=== PATIENT | female | born 2000 | race Caucasian/White ===

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

== ENCOUNTER 2020-09-10 15:31 | Emergency (ER) | payer OTHER, SELFPAY ==
[2020-09-11 11:47] LABS: SARS-CoV-2 MS2 Positive; SARS-CoV-2 N Gene Positive; SARS-CoV-2 S Gene Positive; SARS-CoV-2 by NAA DETECTED (NotDetected); SARS-CoV-2 orf1ab Positive
== END 2020-09-10 16:21 | disposition home or self-care (01) ==
LOC: ERS 15:31
DX: U07.1 COVID-19 (principal); J45.909 Unspecified asthma, uncomplicated; F90.9 Attention-deficit hyperactivity disorder, unspecified type
CPT/HCPCS: 87635; 99283; U0003

== ENCOUNTER 2020-09-21 14:37 | Emergency (ER) | payer OTHER, SELFPAY ==
[2020-09-22 11:53] LABS: SARS-CoV-2 MS2 Positive; SARS-CoV-2 N Gene Positive; SARS-CoV-2 S Gene Positive; SARS-CoV-2 by NAA DETECTED (NotDetected); SARS-CoV-2 orf1ab Positive
== END 2020-09-21 15:38 | disposition home or self-care (01) ==
LOC: ERS 14:37
DX: U07.1 COVID-19 (principal)
CPT/HCPCS: 87635; 99283; U0003

== ENCOUNTER 2022-07-19 15:18 | Emergency (ER) | payer BC | END 2022-07-19 16:26 | disposition home or self-care (01) | LOC: ERS 15:18 | DX: M25.571 Pain in right ankle and joints of right foot (principal); F17.290 Nicotine dependence, other tobacco product, uncomplicated; W20.8XXA Other cause of strike by thrown, projected or falling object, initial encounter ==

== ENCOUNTER 2022-09-16 17:04 | Emergency (ER) | payer BC ==
[2022-09-16] MEDS ORDERED: Ondansetron ODT 4 MG TAB ONE (19:05)
[2022-09-16] MEDS ORDERED: Acetaminophen 325 MG TAB ONE (19:05)
[2022-09-16] MEDS ORDERED: Albuterol 200 PUFF (6.7GM INHALER) ONE (19:05)
[2022-09-16 19:50] LABS: SARS-CoV-2 NAA Rapid Test Not Detected (NotDetected)
[2022-09-16] MEDS ORDERED: Ibuprofen 200 MG TAB ONE (20:10)
== END 2022-09-16 20:14 | disposition home or self-care (01) ==
LOC: ERS 17:04
DX: B34.9 Viral infection, unspecified (principal); Z20.822 Contact with and (suspected) exposure to COVID-19; F17.290 Nicotine dependence, other tobacco product, uncomplicated
CPT/HCPCS: 71045; Q0162

== ENCOUNTER 2024-12-18 16:28 | Emergency (ER) | payer BC, MEDICAID, SELFPAY ==
[2024-12-18 19:22] LABS: #Basophils Less than 0.03 10x3/uL (0.0-0.2); %Basophils 0.3 % (0.0-1.0); %Eosinophils 0.6 % (0.0-10.0); %Lymphocytes 27.9 % (21.0-51.0); %Monocytes 7.7 % (0.0-10.0); %Neutrophils 63.4 % (42.0-75.0); Hematocrit 38.9 % (36.0-47.0); Hemoglobin 12.5 g/dL (12.0-16.0); Mean Corpuscular HGB CONC 32.1 g/dL (32.0-36.0); Mean Corpuscular Hemoglobin 29.9 pg (27.0-31.0); Mean Corpuscular Volume 93.1 fL (78.0-98.0); Mean Platelet Volume 9.7 fL (7.4-10.4); Platelet Count 320 10x3/uL (130-400); RBC Distribution Width 14.6 % (11.5-14.5); Red Blood Cell (RBC) Count 4.18 mill/uL (4.20-5.40)
[2024-12-18 19:41] LABS: ALT (SGPT) 19 U/L (8-55); AST (SGOT) 12 U/L (5-34); Albumin 3.3 g/dL (3.5-5.0); Alkaline Phosphatase 72 U/L (40-110); Anion Gap 13 mmol/L (10-20); BUN (Urea Nitrogen) 12 mg/dL (7.0-18.7); Bilirubin, Total 0.3 mg/dL (0.2-1.2); Calc. Creatinine Clearance 0 mL/min (70-130); Calcium 8.7 mg/dL (7.8-10.44); Carbon Dioxide 21 mmol/L (22-29); Chloride 106 mmol/L (98-107); Estimated GFR 126; Globulin 4.1 g/dL (2.4-3.5); Glucose 93 mg/dL (70-105); Lipase 19 U/L (8-78); Potassium 3.6 mmol/L (3.5-5.1); Protein, Total 7.4 g/dL (6.0-8.3); Sodium 136 mmol/L (136-145)
[2024-12-18 19:47] LABS: Troponin I Less than 0.010 ng/mL (< 0.028)
== END 2024-12-18 19:57 | disposition home or self-care (01) ==
LOC: ERS 16:28
DX: R00.2 Palpitations (principal); E11.9 Type 2 diabetes mellitus without complications; I10 Essential (primary) hypertension; F17.290 Nicotine dependence, other tobacco product, uncomplicated; Z79.85 Long-term (current) use of injectable non-insulin antidiabetic drugs; Z79.899 Other long term (current) drug therapy
CPT/HCPCS: 36415; 71045; 80053; 83690; 84484; 85025; 93005